=== PATIENT | male | born 1970 | race Caucasian/White ===

== ENCOUNTER 2017-11-20 10:05 | Emergency (ER) | payer OTHER ==
[~2017-11-20] VITALS: Ht 175.3 cm; Wt 80.0 kg
[2017-11-20 10:50] LABS: HEMATOCRIT 44.1 % (38.0-50.0); HEMOGLOBIN 15.5 G/DL (12.5-16.6); MCH 30.9 PG (29.0-34.0); MCHC 35.1 G/DL (30.0-36.0); MCV 87.8 FL (86-99); PLATELET COUNT 277 K/uL (156-360); RBC DIS.WIDTH-CV 12.4 % (11.8-14.6); RBC DIS.WIDTH-SD 39.8 % (39-53); RED BLOOD COUNT 5.02 M/uL (4.00-5.50)
[2017-11-20 10:59] LABS: ALBUMIN 4.2 g/dL (3.2-4.8); CHLORIDE 105 mEq/L (99-109); POTASSIUM 3.4 mEq/L (3.7-5.4); SODIUM 139 mEq/L (136-147)
[2017-11-20 11:01] LABS: GLUCOSE 108 mg/dL (70-99); TOTAL PROTEIN 7.1 g/dL (6.4-8.3)
[2017-11-20 11:03] LABS: TOTAL BILIRUBIN 0.5 mg/dL (0.0-1.0)
[2017-11-20 11:05] LABS: ALKALINE PHOSPHATASE 50 IU/L (3-129); CREATININE 0.9 mg/dL (0.6-1.3); GFR ESTIMATE (CALCULATED) > 59 mL/min/ (58.99-99999)
[2017-11-20 11:06] LABS: UREA NITROGEN (BUN) 18 mg/dL (9-23)
[2017-11-20 11:07] LABS: AST (GOT) 15 IU/L (2-34)
[2017-11-20 11:08] LABS: ALT (GPT) 16 IU/L (3-49)
[2017-11-20 12:22] LABS: APPEARANCE CLOUDY ((CLEAR)); BILIRUBIN NEGATIVE; BLOOD NEGATIVE; COLOR YELLOW ((YELLOW)); GLUCOSE (STRIP) NEGATIVE; KETONES NEGATIVE; LEUKOCYTES NEGATIVE; NITRITE NEGATIVE; PROTEIN (STRIP) 30; UROBILINOGEN 0.2 MG/DL (0.2-1.0)
[2017-11-20] MEDS ORDERED: ULTRAM50 MG PO (12:33)
[2017-11-20] MEDS ORDERED: ZOFRAN ODT4 MG PO (12:33)
[2017-11-20 12:43] LABS: BACTERIA NONE SEEN /HPF; EPITHELIAL CELLS NONE SEEN /HPF; MUCUS NONE SEEN /LPF; RED BLOOD CELLS 0-5 /HPF (0-5); UCUL ADDED? NO; WHITE BLOOD CELLS 0-5 /HPF (0-5)
[2017-11-20 13:59] VITALS: BP 169/73
== END 2017-11-20 14:00 | disposition home or self-care (01) ==
LOC: EME 10:05
DX: R11.2 Nausea with vomiting, unspecified (principal); R10.9 Unspecified abdominal pain; R05 Cough; M54.5 Low back pain; F17.200 Nicotine dependence, unspecified, uncomplicated
CPT/HCPCS: 71020; 80053; 81003; 85027; 99281; 99283; J1885; J2405; J7030